=== PATIENT | male | born 1995 | race Caucasian/White ===

== ENCOUNTER 2016-10-06 23:11 | Emergency (ER) | payer OTHER ==
[2016-10-07 00:21] LABS: HEMOGLOBIN 14.2 gm/dl (14.0-17.5); RED BLOOD COUNT 4.75 M/UL (4.20-5.50); WHITE BLOOD COUNT 6.8 K/UL (4.5-11.0)
[2016-10-07 01:08] LABS: BUN/CREATININE RATIO 18 (0-10)
== END 2016-10-07 02:02 | disposition home or self-care (01) ==
LOC: ER1 23:11
PROVIDERS: Family Medicine
DX: H92.03 Otalgia, bilateral (principal); R73.9 Hyperglycemia, unspecified; Z88.1 Allergy status to other antibiotic agents
CPT/HCPCS: 36415; 80053; 83690; 85025; 99283